=== PATIENT | female | born 2000 | race Caucasian/White ===

== ENCOUNTER 2025-05-11 07:08 | Emergency (ER) | payer BC, SELFPAY ==
[2025-05-11 07:17] VITALS: BP 161/93
--- NOTE | 2025-05-11 07:37 | ED.GENMED ---
History of Present Illness
General
Chief Complaint: Abdominal Symptoms
Source: patient
Exam Limitations: none
Time Seen by Provider: 05/11/25 07:23
History of Present Illness
History of Present Illness:
25-year-old otherwise healthy female presents with recurrent diarrhea. She notes no pain in her abdomen. She denies fever. She does note nausea and vomiting occasionally. She also notes soft lower tasting burps. She has been on Mounjaro for
about a year and a half. She did recently increase the dose. Her family doctor suggested that she could have C. difficile. She is here from [place] visiting for a friend's wedding that is today. She denies any blood in the stool. No other
complaints at this time
Phy Exam
Physical Exam
Physical Exam:
General: Well-appearing female no acute respiratory distress
HEENT: Normocephalic atraumatic
Heart: Regular rate and rhythm no murmurs
Lungs: Clear no wheeze
Abdomen is soft nontender nondistended
Course
Orders/Labs/Results
Orders:
Orders
05/11/25 07:34
0.9% Sodium Chloride 1000 ml [Nss] 1,000 ml IV BOLUS
Test Result ONCE
05/11/25 07:45
Complete Blood Count/With Diff Urgent
Comprehensive Metabolic Panel Urgent
HCG, Serum Qualitative Screen Urgent
Lipase Urgent
Urinalysis Reflex To Culture Urgent
Date Specimen was Collected: 05/11/25
Time Specimen was Collected: 07:41
Urine Microscopic Reflex Cult Urgent
STOOL [C difficile Antigen & Toxins] Urgent
LEXIS Source: Feces/Stool
Specimen Description:
Date Specimen was Collected: 05/11/25
Time Specimen was Collected: 07:43
Stool Culture Urgent
LEXIS Source: Feces/Stool
Specimen Description:
Date Specimen was Collected: 05/11/25
Time Specimen was Collected: 07:43
Abnormal Lab Results
05/11/25
07:45
WBC 12.8 H 10^3/uL
(4.8-10.8)
MCV 77.1 L fL
(81.0-99.0)
MCH 25.8 L pg
(27.0-31.0)
Abs Immat Gran (auto) 0.1 H 10^3/uL
(0-0.05)
Absolute Neuts (auto) 9.2 H 10^3/uL
(1.4-6.5)
Absolute Monos (auto) 0.7 H 10^3/uL
(0.1-0.6)
Lymphocytes % 19.6 L %
(20.5-51.1)
Chloride 109 H mmol/L
(98-107)
Glucose 115 H mg/dl
(70-99)
Total Bilirubin 1.8 H mg/dl
(0.2-1.3)
Ur Occult Blood Reflex 3+ A
(Negative)
Urine Bacteria (Reflex) Few A
(Negative)
Urine Albumin (Reflex) 1+ A
(Neg - Trace)
05/11/25 07:45
05/11/25 07:45
Vital Signs
Initial and Last Documented VS:
Initial Vital Signs
Temp Pulse Resp BP Pulse Ox
98.4 F 98 18 161/93 100
05/11/25 07:17 05/11/25 07:17 05/11/25 07:17 05/11/25 07:17 05/11/25 07:17
Last Documented Vital Signs
Temp Pulse Resp BP Pulse Ox
98.4 F 97 16 128/88 99
05/11/25 07:17 05/11/25 08:00 05/11/25 08:00 05/11/25 08:00 05/11/25 08:00
MDM/Problems Addressed
Differential Diagnosis Includes:
Patient with recurring diarrhea nausea vomiting. Concern for possible C. difficile but no recent antibiotics or other risk factors. Will check for electrolyte abnormality. Will obtain stool culture if able. Fluids ordered
*Pulse Oximetry
SaO2: 100
Oxygen Mode of Delivery: Room air
Patient hypoxic: no
*Critical Care Note
Total Time (30-74mins, 75-104mins- exclusive of procedures): Not Applicable
Update Note
Update Note:
C. difficile negative. Labs reviewed subtle leukocytosis with a count of 12.8. Electrolytes normal. Patient otherwise is nontoxic in appearance. I suspect possible medication adverse reaction. Abdomen exam benign no indication for imaging at
this time. Stable for discharge
ED Attending Note
-
Portions of this chart may have been created with voice recognition software.� Occasional wrong word or��sound alike� substitutions may have occurred due to the inherent limitations of voice recognition software.
Discharge Plan
Departure
Patient Disposition: Home (Routine Discharge)
Date of Disposition: 05/11/25
Time of Disposition: 09:27
Patient with high blood pressure during this ER visit?: No
Discharge Problem:
Diarrhea
Instructions: Diarrhea in teens and adults
Prescriptions:
No Action
Mounjaro 15 mg/0.5 mL Pen Injector
15 mg SC QWEEK
Referrals:
UNKNOWN - PT DOES,NOT KNOW [Family Provider]
Activity Restrictions/Additional Instructions:
Continue drinking plenty of clear liquids electrolytes. Return if worse otherwise follow-up with your doctor
Interventions
Interventions:
*Risk Screen - Suicide Last Done: 05/11/25 07:17
*General Assessment Last Done: 05/11/25 07:17
*Neglect/Abuse Screening Last Done: 05/11/25 07:17
*ED- Fall Risk Assessment Last Done: 05/11/25 07:43
*ED COVID-19 Vaccine History Last Done: 05/11/25 07:43
CI-Fmrfwa-Tfetrmsvvq Assessment Last Done: 05/11/25 08:00
Discharge Date and Time
Print Language: POLISH
[2025-05-11 07:42] VITALS: BMI 38.0
[2025-05-11] MEDS: NSS 1000 IV (07:57)
[2025-05-11 08:00] VITALS: BP 128/88
[2025-05-11 08:08] LABS: % Basophils 0.2 % (0-2); % Immature Granulocytes 0.4 % (0-0.5); % Lymphocytes 19.6 % (20.5-51.1); % Monocytes 5.8 % (1.7-9.3); Absolute Eosinophils 0.3 10^3/uL (0-0.7); Absolute Immature Granulocytes 0.1 10^3/uL (0-0.05); Absolute Lymphocytes 2.5 10^3/uL (1.2-3.4); Absolute Monocytes 0.7 10^3/uL (0.1-0.6); Absolute Neutrophils 9.2 10^3/uL (1.4-6.5); Hematocrit 38.8 % (37.0-47.0); Mean Corp Hgb Conc. 33.5 g/dL (33.0-37.0); Mean Corpuscular Hgb 25.8 pg (27.0-31.0); Mean Corpuscular Volume 77.1 fL (81.0-99.0); Mean Platelet Volume 9.6 fL (7.4-10.4); Nucleated Red Blood Cells % 0 %; Platelet Count 273 10^3/uL (130-400); Red Blood Cell Count 5.03 10^6/uL (4.20-5.40); White Blood Cell Count 12.8 10^3/uL (4.8-10.8)
[2025-05-11 08:26] LABS: ALT (SGPT) 26 U/L (0-35); AST (SGOT) 24 U/L (14-36); Albumin 4.4 g/dl (3.5-5.0); Alkaline Phosphatase 86 U/L (38-126); Blood Urea Nitrogen 11 mg/dl (7-17); Calcium 9.2 mg/dl (8.4-10.2); Carbon Dioxide 22 mmol/L (22-30); Chloride 109 mmol/L (98-107); Estimated Creatinine Clearance > 125 ml/min; Glucose 115 mg/dl (70-99); Lipase 49 U/L (23-300); Sodium 141 mmol/L (135-145); Total Bilirubin 1.8 mg/dl (0.2-1.3); Total Protein 7.6 g/dl (6.3-8.2); eGFR > 60.00
[2025-05-11 08:30] LABS: HCG, Serum Qualitative Screen Negative
[2025-05-11 08:41] LABS: Urine Albumin 1+ (Neg - Trace); Urine Bilirubin Negative (Negative); Urine Character Clear (Clear); Urine Color Yellow; Urine Glucose Negative (Negative); Urine Ketone Negative (Negative); Urine Leukocyte Negative (Negative); Urine Nitrite Negative (Negative); Urine Occult Blood 3+ (Negative); Urine Urobilinogen Negative (Neg - 1+)
[2025-05-11 09:01] LABS: Urine Bacteria Few (Negative); Urine Red Blood Cell 0-2 /HPF (0-2); Urine Squamous Cell 16-20 /LPF (Few); Urine White Cell 0-2 /HPF (0-5)
[2025-05-11 09:38] VITALS: BP 133/85
== END 2025-05-11 09:47 | disposition home or self-care (01) ==
LOC: EMR 07:08
PROVIDERS: Physician Assistant; EMERGENCY PHYSICIAN Emergency Medicine
DX: R19.7 Diarrhea, unspecified (principal)
CPT/HCPCS: 99284; 96360; 80053; 81003; 81015; 83690; 84703; 85025; 87045; 87046; 87077; 87324; 87427; 87449